=== PATIENT | male | born 1935 ===

== ENCOUNTER 2018-12-28 08:58 | Day surgery (SDC) | payer MEDICARE, OTHER ==
--- NOTE | 2018-12-28 09:21 | HP ---
DATE OF SURGERY: 12/28/2018 HISTORY OF PRESENT ILLNESS: The patient is an 83 year-old had some bloody stools recently. He has history of atrial fibrillation and has been on thinner in the past. He has a history of polyps in the past. He is in need of colonoscopy, possible internal hemorrhoid banding depending on operative finding. PAST MEDICAL HISTORY: Diabetes. Atrial fibrillation. He is also being worked up for lung cancer he said. PAST SURGICAL HISTORY: Cyst on tailbone. Colonoscopy. Neck surgery. MEDICATIONS: NovoLog. He had been on Coumadin and potassium, Lasix, metoprolol. ALLERGIES: NKDA. FAMILY HISTORY: Heart disease. Cancer. Hypertension. SOCIAL HISTORY: Denies alcohol abuse. He quit smoking years ago. REVIEW OF SYSTEMS: Fourteen systems reviewed per admission assessment pertinent for as noted above. No chest pain or palpitations, other systems negative or noncontributory as above and per preadmission questionnaire. PHYSICAL EXAMINATION: GENERAL: No acute distress. HEENT: Sclerae nonicteric. NECK: No JVD. CHEST: Equal excursion, nonlabored breathing. CVS: Regular rate and rhythm. ABDOMEN: Soft. No peritoneal signs. EXTREMITIES: No significant edema. NEURO: Alert, moving extremities symmetrically. No gross motor deficits noted. RECTAL: Deferred timed to endoscopy exam. IMPRESSION: Rectal bleeding unclear etiology. He is in need of colonoscopy, possible internal hemorrhoid banding. Risks and benefits explained in detail including bleeding or infection, risk of bowel injury or perforation possibly requiring open procedure, risk of missed or nondiagnosis or incomplete exam possibly requiring barium enema, other studies or procedures, general risk of anesthesia or sedation, risk of bowel prep. If hemorrhoidal banding accomplished, general risk of bleeding, infection, risk of sphincter spasm, irritability, as well as overall risk of possible progression of hemorrhoidal disease possibly requiring other procedures, banding, excisional therapy or other treatments down the road. He understands all the above but not limited to, will proceed with colonoscopy with possible internal hemorrhoid banding as an outpatient.
[2018-12-28] MEDS ORDERED: Lactated Ringers 1,000 ML IV SCH (09:30)
[2018-12-28 09:49] LABS: INR 1.43 (0.8-3.0); PROTIME 16.3 SECONDS (8.83-12.87)
[2018-12-28 09:53] LABS: BLOOD UREA NITROGEN 12 mg/dL (9-20); CHLORIDE 102 mmol/L (98-107); Calcium 9.2 mg/dL (8.4-10.2); Carbon Dioxide 28 mmol/L (22-30); Creatinine 1 0.78 mg/dL (0.66-1.25); Glucose 109 mg/dL (74-106); Potassium 3.7 mmol/L (3.5-5.1); SODIUM 139 mmol/L (137-145)
[2018-12-28] MEDS ORDERED: MEFOXIN 2 GM PREMIX** 2 GM/50 ML ML IV SCH (10:00)
[2018-12-28] MEDS ORDERED: DIPRIVAN 200 MG/20 ML IV ONE ×2 (11:10→11:25)
[2018-12-28 13:12] VITALS: O2SAT 97
[2018-12-28 13:16] VITALS: BP 130/78; PULSE 84
--- NOTE | 2018-12-28 14:21 | OP ---
SURGERY DATE/TIME: 12/28/2018 1104 PREOPERATIVE DIAGNOSIS: History of rectal bleeding. POSTOPERATIVE DIAGNOSES: 1) Polyps. 2) Poor bowel prep limiting exam. 3) Diverticulosis. 4) Internal and external hemorrhoids. 5) Tortuous colon. 6) Wildly patent colorectal anastomosis. PROCEDURES: 1) Colonoscopy to ileocecal valve, could only see 70 to 80% of the cecum but could not visualize well enough. Staff unable to reduce looping in the colonoscope. Therefore barium enema ordered for completeness. 2) Hot snare polypectomy transverse colon polyp. 3) Hot biopsy second small transverse colon polyp versus hyperplastic lesion. 4) Hot snare polypectomy distal transverse colon polyp. 5) Hot snare polypectomy polyp proximal blind end of colon proximal to anastomotic site. 6) Hot snare polypectomy of polyp a few centimeters distal to the anastomotic site. 7) Internal hemorrhoid banding x2 columns. SURGEON: Dr. Shane Mejia. PATIENT SERVICES CLERK: Rob Bocanegra, Medical Student III. ANESTHESIA: MAC. ESTIMATED BLOOD LOSS: Minimal. INDICATIONS: As noted above. Risks and benefits explained in detail but not limited to and consent obtained. DESCRIPTION OF PROCEDURE AND FINDINGS: The patient is taken to the operating room. MAC anesthesia introduced. After official time out and no disagreement with planned procedure, digital rectal exam did not reveal any large rectal masses. He did have some internal and external hemorrhoids. Video colonoscope inserted and passed up a blind limb and he had some stool balls in there, solid stool. There was one small polyp just proximal to the anastomotic site. Scope is passed back down and then up through the proximal limb of the colon. Slowly and carefully this took quite some time given the large amount of solid, semi-solid and liquidy stool and diverticulosis but slowly and carefully the scope was able to be passed around to the ascending colon. Positioning on his back with two different staff members external pressure on the abdomen. Even with this we only reached ileocecal valve, we could not see over the edge to see 100% of the cecum. There did not appear any evidence of any large mass there. Prep overall is poor. A large amount of liquidy, semisolid and solid stool throughout the colon very much limited the exam for small lesions though it did not appear there was any large lesions but it was not a very good prep. Because only about 78% of the cecum could be well visualized, it was elected to go ahead and order a barium enema for completeness. Scope slowly and carefully withdrawn. Proximal transverse colon had two polyps one was about 3 to 4 mm in size removed with hot snare polypectomy with brief bursts of cautery. Good hemostasis noted. Another small raised lesion adjacent to it was removed with hot biopsy forceps. Good hemostasis noted. The scope is slowly and carefully withdrawn. He did have diverticulosis throughout the colon more concentrated over on the left side. In the transverse colon another 3 to 4 mm polyp removed with hot snare polypectomy with brief bursts of cautery. Good hemostasis noted. Otherwise the scope carefully withdrawn. In the proximal limb he had diverticulosis. There were no signs of any large polyps, passes or obstructing lesions. The anastomotic site was widely patent. It was then passed back up the blind limb that had the small polyp proximal to anastomotic site this was removed with hot snare polypectomy and brief bursts of cautery. It was about 3 mm in size. Good hemostasis noted. The scope is then pulled back. There was a 3 to 4 mm polyp removed with hot snare polypectomy and brief bursts of cautery, this definitely had adenomatous appearance. Otherwise he had some internal and external hemorrhoids. The scope is withdrawn. Again, the prep did limit exam for small lesions. I do not feel there are any large obstructing lesions but poor overall prep. He has a barium enema ordered for further evaluation. The scope is withdrawn. He remained under MAC anesthesia, lubricated half-sharp retractor carefully inserted. He has left lateral and right posterior hemorrhoids grade II to III. It was felt they warranted attempted banding. Half-sharp retractor left lateral was banded first, grasping top edge of the hemorrhoid hopefully acquiring feeding arteriole and banding applied. Half-sharp retractor carefully removed and re-inserted. The right anterior was not prominent enough to warrant banding. The right posterior had grade II to III hemorrhoids. Given his blood thinner use it was felt this warranted banding, too. The suction route rider was applied on the top edge of the hemorrhoid and hopefully acquiring the feeding arteriole. Good tuft of tissue noted. The retractor was withdrawn. It should be noted that the left lateral band had been knocked off of the retractor therefore this was reapplied with good tuft tissue. Retractor removed. The patient tolerated the procedure well. There were no immediate complications. Findings discussed with the family out in the waiting area. Including the fact that we would order barium enema for completeness to evaluate the cecum a little better. Otherwise overall poor prep. Will await pathology results to set him up for follow up endoscopy time.
== END 2018-12-28 13:25 | disposition home or self-care (01) ==
LOC: SDC 08:58
PROVIDERS: ATTEND Surgery
DX: D12.3 Benign neoplasm of transverse colon (principal); K64.4 Residual hemorrhoidal skin tags; K64.8 Other hemorrhoids; K57.30 Diverticulosis of large intestine without perforation or abscess without bleeding; E11.9 Type 2 diabetes mellitus without complications; I48.91 Unspecified atrial fibrillation; Z79.01 Long term (current) use of anticoagulants; Z79.899 Other long term (current) drug therapy
CPT/HCPCS: 36415; 80048; 82962; 85610; 99100; J0694; J2704